=== PATIENT | female | born 1990 | race African-American/Black ===

== ENCOUNTER 2025-04-07 17:44 | Emergency (ER) | payer OTHER ==
[~2025-04-07] VITALS: Ht 170.2 cm; Wt 110.0 kg
[2025-04-07 18:00] VITALS: TEMP 98.1
[2025-04-07 19:37] LABS: PLATELET COUNT (AUTO) 427 K/uL (150-450); RED BLOOD CELL COUNT(AUTO) 4.11 MIL/uL (4.00-5.20); RED CELL DISTRIBUTION WIDTH 16.5 % (11.5-14.5); WHITE BLOOD COUNT (AUTO) 10.0 K/uL (4.5-11.0)
[2025-04-07 19:40] LABS: CALCIUM, TOTAL 8.9 mg/dL (8.8-10.5); CREATININE 0.67 mg/dL (0.60-1.30); GLOMERULAR FILTR. RATE CALC > 60 mL/min (>60); GLUCOSE,RANDOM 84 mg/dL (70-110); SODIUM SERUM 136 mmol/L (136-145); UREA NITROGEN, BLOOD 6 mg/dL (7-18)
[2025-04-07] MEDS: CEPHALEXIN MONOHYDRATE 500 MG CAPSULE PO ONE (20:21)
[2025-04-07] MEDS: SULFAMETHOX/TRIMETH DS 800-160 MG/TABLET PO ONE (20:21)
[2025-04-07] MEDS ORDERED: SULF1TAB94 PO (20:40)
[2025-04-07] MEDS ORDERED: CEPH-558 PO (20:40)
[2025-04-07 20:46] VITALS: BP 116/72; PULSE 68; RESP 16; O2SAT 100
== END 2025-04-07 20:48 | disposition left against medical advice (07) ==
LOC: EMS 17:52
DX: L03.211 Cellulitis of face (principal); F17.210 Nicotine dependence, cigarettes, uncomplicated
CPT/HCPCS: 80048; 85025; 99284

== ENCOUNTER 2025-04-12 15:08 | Emergency (ER) | payer OTHER ==
[~2025-04-12] VITALS: Ht 170.2 cm; Wt 100.0 kg
[~2025-04-12 15:08] MED LIST: CEPH-558 PO; SULF1TAB94 PO
[2025-04-12 15:55] VITALS: BP 101/62; PULSE 117; RESP 18; TEMP 98.1; O2SAT 100
== END 2025-04-12 22:34 | disposition left against medical advice (07) ==
LOC: EMS 15:08
DX: L02.11 Cutaneous abscess of neck (principal); Z53.21 Procedure and treatment not carried out due to patient leaving prior to being seen by health care provider
CPT/HCPCS: 99281; Z7502